=== PATIENT | female | born 1945 | race Native Hawaiian/Other Pacific Islander ===

== ENCOUNTER 2017-04-29 09:28 | Outpatient (CLI) | payer OTHER, BC | END 2017-04-29 19:32 | disposition home or self-care (01) | LOC: MAMMO 09:28 | DX: Z85.3 Personal history of malignant neoplasm of breast (principal) | CPT/HCPCS: G0206-TC ==

== ENCOUNTER 2017-06-09 15:06 | Outpatient (CLI) | payer OTHER, BC | END 2017-06-09 19:34 | disposition home or self-care (01) | LOC: LAB 15:06 | DX: N39.0 Urinary tract infection, site not specified (principal) | CPT/HCPCS: 87088 ==

== ENCOUNTER 2017-11-16 15:29 | Outpatient (CLI) | payer OTHER, BC ==
[2017-11-16 16:10] LABS: PLATELET COUNT 240 K/uL (152-353)
[2017-11-16 16:38] LABS: POTASSIUM 4.1 mmol/L (3.6-5.2)
== END 2017-11-16 22:05 | disposition home or self-care (01) ==
LOC: LABW 15:29
PROVIDERS: Dermatology
DX: L29.8 Other pruritus (principal); R94.6 Abnormal results of thyroid function studies
CPT/HCPCS: 36415; 80076; 82435; 82565; 84132; 84295; 84436; 84443; 84479; 84520; 85027

== ENCOUNTER 2017-12-23 08:14 | Outpatient (CLI) | payer OTHER, BC ==
[2017-12-23 09:10] LABS: PLATELET COUNT 234 K/uL (152-353)
[2017-12-23 09:21] LABS: POTASSIUM 3.8 mmol/L (3.6-5.2)
== END 2017-12-23 18:45 | disposition home or self-care (01) ==
LOC: LABW 08:14
PROVIDERS: Internal Medicine
DX: I10 Essential (primary) hypertension (principal); R73.02 Impaired glucose tolerance (oral)
CPT/HCPCS: 36415; 80053; 80061; 81000; 83036; 84439; 84443; 85027

== ENCOUNTER 2018-01-28 11:34 | Outpatient (CLI) | payer OTHER, BC | END 2018-01-28 19:17 | disposition home or self-care (01) | LOC: LAB 11:34 | DX: N39.0 Urinary tract infection, site not specified (principal) | CPT/HCPCS: 87077; 87086; 87088; 87186 ==

== ENCOUNTER 2018-05-04 09:47 | Outpatient (CLI) | payer OTHER, BC | END 2018-05-04 23:12 | disposition home or self-care (01) | LOC: MAMMO 09:47 | DX: Z85.3 Personal history of malignant neoplasm of breast (principal); Z90.12 Acquired absence of left breast and nipple ==

== ENCOUNTER 2018-05-27 08:55 | Outpatient (CLI) | payer OTHER, BC ==
[2018-05-27 09:57] LABS: PLATELET COUNT 234 K/uL (152-353)
[2018-05-27 10:08] LABS: POTASSIUM 3.9 mmol/L (3.6-5.2)
== END 2018-05-27 19:50 | disposition home or self-care (01) ==
LOC: LABW 08:55
PROVIDERS: Nurse Practitioner Family
DX: R21 Rash and other nonspecific skin eruption (principal); D48.5 Neoplasm of uncertain behavior of skin; R79.89 Other specified abnormal findings of blood chemistry; E83.52 Hypercalcemia
CPT/HCPCS: 36415; 80053; 80074; 81000; 84439; 84443; 85027; 86039; 86160; 86352; 87328; 87329

== ENCOUNTER 2018-06-13 14:30 | Inpatient (IN) | payer OTHER, BC ==
[~2018-06-13] VITALS: Ht 149.9 cm; Wt 64.5 kg
[2018-06-13 14:40] VITALS: BP 181/67; TEMP 98.2
[2018-06-13 15:08] LABS: PLATELET COUNT 301 K/uL (152-353); POTASSIUM 3.3 mmol/L (3.6-5.2); SODIUM 140 mmol/L (136-145)
[2018-06-13 17:43] VITALS: BP 175/58; TEMP 98.3; Ht 149.9 cm; Wt 64.5 kg
[2018-06-13] MEDS ORDERED: AMITRIPTYLIN100 MG PO (18:15)
[2018-06-13] MEDS ORDERED: TRIGLIDE160 MG PO (18:16)
[2018-06-13] MEDS ORDERED: MEMANTINE HCL10 MG PO (18:16)
[2018-06-13] MEDS ORDERED: FUROSEMIDE20 MG PO (18:18)
[2018-06-13] MEDS ORDERED: MELOXICAM7.5 MG PO (18:22)
[2018-06-13] MEDS ORDERED: TRAMADOL HCL100 MG PO (18:25)
[2018-06-13] MEDS ORDERED: SIMV40TA57 (18:26)
[2018-06-13] MEDS ORDERED: CARTIA XT240 MG/24 PO (18:29)
[2018-06-13] MEDS ORDERED: DONEPEZIL HCL23 MG PO (18:31)
[2018-06-13] MEDS ORDERED: PRESERVISION AREDS 2 PO (18:34)
[2018-06-13] MEDS ORDERED: OMEP20CA PO (18:34)
[2018-06-13] MEDS ORDERED: CETIRIZINE10 MG PO (18:35)
[2018-06-13 20:00] VITALS: BP 162/53; TEMP 98.4
[2018-06-13 22:34] LABS: PARTIAL THROMBOPLASTIN TIME 22.5 SECONDS (24.5-33.6)
[2018-06-13 23:00] VITALS: BP 128/63
[2018-06-14] VITALS (19 sets, daily range): BP systolic 120–156; BP diastolic 31–67; TEMP 98–98.4
--- NOTE | 2018-06-14 00:12 | NUR ---
06/13/2018 @ 1930 PATIENT CO SHORTNESS OF BREATH, O2 SAT IS 80% ON O2 AT 2LPM/NC, RESPIRATORY THERAPY AT BEDSIDE, STAT ABG DRAWN AND PT. PLACED ON BRYSON MASK AT 50%, OS SAT NOW IS 95%. 06/13/2018 @ [address] GILMORE ON THE PHONE, PT.'S FAMILY MEMBER HAD CONTACTED HER. DR. GILMORE COVERING FOR DR. MIKE WHO IS PT'S PRIMARY CARE PROVIDER. ORDERS GIVEN TO GET STAT PORTABLE CHEST XRAY AND STAT DDIMER. ALSO TO PLACE CROSS CATHETER, TELEMETRY. PT. COLOR PINK O2 SAT IS 96% AND PT. STATES SHE IS BREATHING "A LITTLE BETTER" AT THIS TIME. 06/13/2018 @ 2157 CALLED BACK AND ORDERED STAT REPEAT ABG AND PT/PTT. 06/13/2018 @ [address]. GILMORE AT BEDSIDE EXAMINING PATIENT. 06/13/2018 @ 2240 ORDERS TO MOVE PATIENT TO ICU PER DR. GILMORE. 06/13/2018 @ 2250 PATIENT TRANSFERRED TO ICU BED 2 VIA BED WITHOUT DIFFICULTY/
--- NOTE | 2018-06-14 04:52 | NUR ---
06/14/18 2240 PT TRANSFERED TO ICU FROM THE FLOOR. NEW ORDERS FOR HEPARIN DRIP. CT OF CHEST & ABD/PELVIS WITH AND WITHOUT CONTRAST IN THE A.M. PT HAS BEEN NPO SINCE MIDNIGHT. CONTINUOUS NEB GOING.
--- NOTE | 2018-06-14 05:00 | NUR ---
06/14/18 0000 LEVAQUIN HELD DUE TO HEPARIN RUNNING AT THIS TIME.
[2018-06-14 06:26] LABS: PLATELET COUNT 271 K/uL (152-353)
[2018-06-14 07:04] LABS: POTASSIUM 2.9 mmol/L (3.6-5.2); SODIUM 142 mmol/L (136-145)
[2018-06-14 12:34] LABS: PARTIAL THROMBOPLASTIN TIME 36.1 SECONDS (24.5-33.6)
--- NOTE | 2018-06-14 16:42 | NUR ---
REPORT CALLED TO BENJAMIN PHILLIPS AT ICU [facility] IN [place], [place]. ALL PERTINENT INFORMATION REPORTED TO ACCEPTING NURSE. ALL QUESTIONS ANSWERED. EMS NOTIFIED. PTS FAMILY NOTIFIED OF TRANSFER PROCEDURE.
--- NOTE | 2018-06-14 17:43 | NUR ---
EMS AT BEDSIDE TO TRANSPORT TO [facility] IN [place]. PT AMBULATED TO THE STRETCHER. O2 INTACT VIA NC AT 3LPM. PTS SAT REMAINS AT 97%. PTS FAMILY AT SIDE. NAD NOTED.
== END 2018-06-14 17:45 | disposition short-term general hospital (02) | DRG 193 ==
LOC: ED 14:30 → MED/SURG 16:20 → ICU 22:40
PROVIDERS: Family Medicine; ADMIT Internal Medicine
DX: J18.8 Other pneumonia, unspecified organism (principal); J81.0 Acute pulmonary edema; D64.89 Other specified anemias; K21.9 Gastro-esophageal reflux disease without esophagitis; I10 Essential (primary) hypertension; F03.90 Unspecified dementia, unspecified severity, without behavioral disturbance, psychotic disturbance, mood disturbance, and anxiety; I44.7 Left bundle-branch block, unspecified; R06.09 Other forms of dyspnea
CPT/HCPCS: 36415; 36600; 80053; 81000; 82550; 82553; 82805; 83735; 83880; 84484; 85027; 85379; 85610; 85730; 87040; 93005; 94644; 94645; 94664; 94760; 96367; 96375; 99283; J0456; J0696; J1100; J1644; J1650; J1940; J1956; J3480; Q9963

== ENCOUNTER 2018-06-30 13:03 | Outpatient (CLI) | payer OTHER, BC ==
[~2018-06-30 13:03] MED LIST: AMITRIPTYLIN100 MG PO; CARTIA XT240 MG/24 PO; CETIRIZINE10 MG PO; DONEPEZIL HCL23 MG PO; FUROSEMIDE20 MG PO; MELOXICAM7.5 MG PO; MEMANTINE HCL10 MG PO; OMEP20CA PO; PRESERVISION AREDS 2 PO; SIMV40TA57; TRAMADOL HCL100 MG PO; TRIGLIDE160 MG PO
== END 2018-06-30 23:57 | disposition home or self-care (01) ==
LOC: LAB 13:03
DX: A09 Infectious gastroenteritis and colitis, unspecified (principal)
CPT/HCPCS: 87015; 87045; 87324; 87328; 87329; 87449; 87899

== ENCOUNTER 2018-07-20 09:30 | Outpatient (CLI) | payer OTHER, BC ==
[2018-07-20 10:29] LABS: PLATELET COUNT 270 K/uL (152-353)
[2018-07-20 10:30] LABS: POTASSIUM 4.2 mmol/L (3.6-5.2)
== END 2018-07-20 22:27 | disposition home or self-care (01) ==
LOC: LABW 09:30
PROVIDERS: Internal Medicine
DX: I50.9 Heart failure, unspecified (principal); R53.82 Chronic fatigue, unspecified; E53.8 Deficiency of other specified B group vitamins; R82.99 Other abnormal findings in urine
CPT/HCPCS: 36415; 80053; 81000; 82607; 83880; 84443; 85027; 87077; 87086; 87088; 87186

== ENCOUNTER 2018-07-22 18:22 | Emergency (ER) | payer OTHER, BC ==
[~2018-07-22] VITALS: Ht 149.9 cm; Wt 64.4 kg
[2018-07-22 19:03] LABS: PLATELET COUNT 379 K/uL (152-353)
[2018-07-22 19:11] LABS: POTASSIUM 3.8 mmol/L (3.6-5.2)
[2018-07-22 21:20] VITALS: BP 157/65; TEMP 98.3
== END 2018-07-22 21:24 | disposition short-term general hospital (02) ==
LOC: ED 18:22
PROVIDERS: Family Medicine
DX: I50.9 Heart failure, unspecified (principal)
CPT/HCPCS: 36600; 51702; 80053; 82805; 83880; 84484; 85027; 93005; 94664; 96374; 96375; 99285; J1100; J1940; J2930

== ENCOUNTER 2018-07-22 21:26 | Outpatient (CLI) | payer OTHER, BC | END 2018-07-22 22:38 | disposition short-term general hospital (02) | LOC: AMB 21:26 | DX: I50.9 Heart failure, unspecified (principal) | CPT/HCPCS: A0425; A0427 ==

== ENCOUNTER 2018-09-21 17:14 | Outpatient (CLI) | payer OTHER, BC ==
[2018-09-21] MEDS ORDERED: AMITRIPTYLINE H50 MG PO (17:26)
[2018-09-21] MEDS ORDERED: FURO40TA93 PO (17:28)
[2018-09-21] MEDS ORDERED: CARV6.25 PO (17:30)
[2018-09-21] MEDS ORDERED: KLOR-CON M2020 MEQ PO (17:30)
[2018-09-21] MEDS ORDERED: LISI5TAB10 PO (17:31)
== END 2018-09-21 17:16 | disposition short-term general hospital (02) ==
LOC: AMB 17:14
DX: R06.02 Shortness of breath (principal)
CPT/HCPCS: A0425; A0429

== ENCOUNTER 2018-09-21 17:20 | Emergency (ER) | payer OTHER, BC ==
[~2018-09-21] VITALS: Ht 149.9 cm; Wt 64.4 kg
[2018-09-21] MEDS ORDERED: AMITRIPTYLINE H50 MG PO (17:26)
[2018-09-21] MEDS ORDERED: FURO40TA93 PO (17:28)
[2018-09-21] MEDS ORDERED: KLOR-CON M2020 MEQ PO (17:30)
[2018-09-21] MEDS ORDERED: CARV6.25 PO (17:30)
[2018-09-21] MEDS ORDERED: LISI5TAB10 PO (17:31)
[2018-09-21 18:15] LABS: PLATELET COUNT 193 K/uL (152-353)
[2018-09-21 18:27] LABS: POTASSIUM 4.4 mmol/L (3.6-5.2); SODIUM 140 mmol/L (136-145)
[2018-09-21 20:20] VITALS: BP 158/87; TEMP 98.5
== END 2018-09-21 20:28 | disposition home or self-care (01) ==
LOC: ED 17:20
PROVIDERS: Family Medicine
DX: I50.9 Heart failure, unspecified (principal); T73.3XXA Exhaustion due to excessive exertion, initial encounter; I44.7 Left bundle-branch block, unspecified
CPT/HCPCS: 36415; 80053; 81000; 82550; 83880; 84484; 85027; 93005; 96374; 99284; J1940

== ENCOUNTER 2018-11-30 09:06 | Outpatient (CLI) | payer OTHER, BC ==
[~2018-11-30 09:06] MED LIST changes: +AMITRIPTYLINE H50 MG PO; +CARV6.25 PO; +FURO40TA93 PO; +KLOR-CON M2020 MEQ PO; +LISI5TAB10 PO
[2018-11-30 09:37] LABS: PLATELET COUNT 204 K/uL (152-353)
[2018-11-30 10:14] LABS: POTASSIUM 4.6 mmol/L (3.6-5.2)
== END 2018-11-30 19:05 | disposition home or self-care (01) ==
LOC: LABW 09:06
PROVIDERS: Internal Medicine
DX: F01.50 Vascular dementia, unspecified severity, without behavioral disturbance, psychotic disturbance, mood disturbance, and anxiety (principal); F41.9 Anxiety disorder, unspecified; Z79.899 Other long term (current) drug therapy; I25.5 Ischemic cardiomyopathy
CPT/HCPCS: 36415; 80053; 80061; 81000; 83880; 84439; 84443; 85027; 87077; 87086; 87088; 87186

== ENCOUNTER 2018-12-16 14:57 | Outpatient (CLI) | payer OTHER, BC | END 2018-12-16 20:43 | disposition home or self-care (01) | LOC: RAD 14:57 | DX: M17.11 Unilateral primary osteoarthritis, right knee (principal) ==

== ENCOUNTER 2019-01-04 09:18 | Outpatient (CLI) | payer OTHER, BC ==
[2019-01-04 09:38] LABS: PLATELET COUNT 228 K/uL (152-353)
[2019-01-04 10:40] LABS: POTASSIUM 4.3 mmol/L (3.6-5.2); SODIUM 135 mmol/L (136-145)
== END 2019-01-04 23:50 | disposition home or self-care (01) ==
LOC: LABW 09:18
PROVIDERS: Internal Medicine
DX: Z00.00 Encounter for general adult medical examination without abnormal findings (principal); E21.3 Hyperparathyroidism, unspecified; Z79.899 Other long term (current) drug therapy; R73.01 Impaired fasting glucose; E78.5 Hyperlipidemia, unspecified; I10 Essential (primary) hypertension; Z12.89 Encounter for screening for malignant neoplasm of other sites
CPT/HCPCS: 36415; 80053; 80061; 83036; 84153; 84443; 85027

== ENCOUNTER 2019-07-22 09:18 | Outpatient (CLI) | payer OTHER, BC | END 2019-07-22 19:19 | disposition home or self-care (01) | LOC: LABW 09:18 | PROVIDERS: Internal Medicine | DX: E78.49 Other hyperlipidemia (principal); N28.89 Other specified disorders of kidney and ureter | CPT/HCPCS: 36415; 80048; 84478 ==

== ENCOUNTER 2020-07-19 09:15 | Outpatient (CLI) | payer OTHER, BC ==
[2020-07-19 17:35] LABS: PLATELET COUNT 190 K/uL (152-353)
== END 2020-07-19 23:35 | disposition home or self-care (01) ==
LOC: LABW 09:15
PROVIDERS: Internal Medicine
DX: Z00.00 Encounter for general adult medical examination without abnormal findings (principal); E78.49 Other hyperlipidemia; I10 Essential (primary) hypertension; Z79.899 Other long term (current) drug therapy
CPT/HCPCS: 36415; 80053; 80061; 83036; 84443; 85027

== ENCOUNTER 2020-09-23 17:04 | Emergency (ER) | payer OTHER, BC ==
[~2020-09-23] VITALS: Ht 149.9 cm; Wt 64.4 kg
[2020-09-23 17:11] VITALS: BP 137/50; TEMP 99.4
[2020-09-23 17:30] LABS: PLATELET COUNT 205 K/uL (152-353)
[2020-09-23 17:44] LABS: POTASSIUM 4.1 mmol/L (3.6-5.2); SODIUM 134 mmol/L (136-145)
== END 2020-09-23 19:45 | disposition home or self-care (01) ==
LOC: ED 17:04
PROVIDERS: Family Medicine
DX: A08.39 Other viral enteritis (principal); Z03.818 Encounter for observation for suspected exposure to other biological agents ruled out
CPT/HCPCS: 36415; 80053; 82150; 82550; 82553; 83605; 83690; 84484; 85027; 87635; 99284; U0003

== ENCOUNTER 2020-10-04 14:55 | Observation (INO) | payer OTHER, BC ==
[~2020-10-04] VITALS: Ht 149.9 cm; Wt 63.6 kg
[2020-10-04 15:12] VITALS: BP 120/39; TEMP 97.3
[2020-10-04 16:00] VITALS: BP 122/44
[2020-10-04 16:13] LABS: POTASSIUM 4.5 mmol/L (3.6-5.2); SODIUM 132 mmol/L (136-145)
[2020-10-04 16:23] LABS: PLATELET COUNT 182 K/uL (152-353)
[2020-10-04 16:30] VITALS: BP 119/46
[2020-10-04 17:00] VITALS: BP 117/45
[2020-10-04 20:00] VITALS: BP 128/46; TEMP 98.3
[2020-10-05] VITALS: BP 136/46; TEMP 98.8
[2020-10-05 03:35] VITALS: BP 140/47; TEMP 98.1; Ht 149.9 cm; Wt 63.6 kg
[2020-10-05 04:00] VITALS: BP 110/42; TEMP 98.2
[2020-10-05 05:58] LABS: POTASSIUM 4.5 mmol/L (3.6-5.2)
[2020-10-05] MEDS ORDERED: DONEPEZIL HYDRO10 M1 PO (06:21)
[2020-10-05] MEDS ORDERED: AMITRIPTYLIN100 MG PO (06:22)
[2020-10-05 06:26] LABS: PLATELET COUNT 163 K/uL (152-353)
[2020-10-05] MEDS ORDERED: TRAMADOL HYDROC50 MG PO (06:29)
[2020-10-05 08:00] VITALS: BP 115/33; TEMP 97.9
[2020-10-05 12:00] VITALS: BP 121/33; TEMP 98.7
== END 2020-10-05 13:00 | disposition home or self-care (01) ==
LOC: ED 14:55 → MED/SURG 17:06
PROVIDERS: ADMIT Emergency Medicine Emergency Medical Services; ATTEND Internal Medicine Endocrinology, Diabetes & Metabolism
DX: E87.1 Hypo-osmolality and hyponatremia (principal); R53.1 Weakness; I13.0 Hypertensive heart and chronic kidney disease with heart failure and stage 1 through stage 4 chronic kidney disease, or unspecified chronic kidney disease; N18.4 Chronic kidney disease, stage 4 (severe); I50.89 Other heart failure; E78.49 Other hyperlipidemia; D63.8 Anemia in other chronic diseases classified elsewhere
CPT/HCPCS: 36415; 80048; 80053; 81000; 83605; 83690; 83880; 84443; 84484; 85027; 87635; 93005; 96360; 96365; 96366; 99220; 99284; G0378; U0003